=== PATIENT | female | born 1995 | race Caucasian/White ===

== ENCOUNTER 2022-01-19 11:31 | Emergency (ER) | payer SELFPAY ==
[2022-01-19] MEDS ORDERED: ACETAMINOPHEN 500 MG TAB PO ONE (14:43)
[2022-01-19] MEDS ORDERED: dexAMETHasone 20 MG/5 ML VIAL IM ONE (14:44)
--- NOTE | 2022-01-19 15:14 | Emergency Department Report ---
ED Fall HPI - General Chief Complaint: Fall Stated Complaint: HEADACHE/LOWER BACK PAIN LT SIDE Source: patient Mode of arrival: Ambulatory - History of Present Illness Initial Comments: 26-year-old female presents to the ED complaining of back pain after slip and fall at [employer] x3 days ago. 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 Patient denies any prolonged downtime. patient is alert and oriented x 3. Denies any, dysuria loss of bowel bowel or bladder, saddle anesthesia or fever . Patient states taking Motrin 400 mg prior to arrival and states that pain is a current 7 out of 10. Patient is ambulatory. No obvious deformity noted. No distracting injury noted. No edema noted. Onset/Timin -: days(s) Loss of Consciousness: none Prolonged Down Time?: no Symptoms Prior to Fall: none Location: back Severity: moderate Severity scale (0 -10): 7 Quality: aching Associated Symptoms: denies - Related Data Previous Rx's Medication Instructions Recorded Last Taken Type Cyclobenzaprine [Flexeril] 10 mg PO TID PRN 15 Days #30 tab 01/19/22 Unknown Rx Naproxen [Naprosyn] 500 mg PO BID 15 Days #30 tablet 01/19/22 Unknown Rx Allergies Allergy/AdvReac Type Severity Reaction Status Date / Time No Known Allergies Allergy Unverified 07/12/21 07:20 ED Review of Systems ROS: Stated complaint: HEADACHE/LOWER BACK PAIN LT SIDE Other details as noted in HPI Constitutional: denies: chills, fever Eyes: denies: eye pain, eye discharge, vision change ENT: denies: ear pain, throat pain Respiratory: denies: cough, shortness of breath, wheezing Cardiovascular: denies: chest pain, palpitations Endocrine: no symptoms reported Gastrointestinal: denies: abdominal pain, nausea, diarrhea Genitourinary: denies: urgency, dysuria, discharge Musculoskeletal: back pain. denies: joint swelling, arthralgia Skin: denies: rash, lesions Neurological: denies: headache, weakness, paresthesias Psychiatric: denies: anxiety, depression Hematological/Lymphatic: denies: easy bleeding, easy bruising ED Past Medical Hx - Past Medical History Hx Hypertension: No Hx Congestive Heart Failure: No Hx Diabetes: No Hx Deep Vein Thrombosis: No Hx Renal Disease: No Hx Sickle Cell Disease: No Hx Seizures: No Hx Asthma: No Hx COPD: No Hx HIV: No - Social History Smoking Status: Never Smoker - Medications Home Medications: Home Medications Medication Instructions Recorded Confirmed Last Taken Type Cyclobenzaprine [Flexeril] 10 mg PO TID PRN 15 Days #30 tab 01/19/22 Unknown Rx Naproxen [Naprosyn] 500 mg PO BID 15 Days #30 tablet 01/19/22 Unknown Rx ED Physical Exam - General Limitations: Language Barrier General appearance: alert, in no apparent distress - Head Head exam: Present: atraumatic, normocephalic - Eye Eye exam: Present: normal appearance - ENT ENT exam: Present: mucous membranes moist - Neck Neck exam: Present: normal inspection - Respiratory Respiratory exam: Present: normal lung sounds bilaterally. Absent: respiratory distress - Cardiovascular Cardiovascular Exam: Present: regular rate, normal rhythm. Absent: systolic murmur, diastolic murmur, rubs, gallop - GI/Abdominal GI/Abdominal exam: Present: soft, normal bowel sounds - Extremities Exam Extremities exam: Present: normal inspection - Back Exam Back exam: Present: normal inspection - Neurological Exam Neurological exam: Present: alert, oriented X3 - Psychiatric Psychiatric exam: Present: normal affect, normal mood - Skin Skin exam: Present: warm, dry, intact, normal color. Absent: rash ED Course Vital Signs 01/19/22 01/19/22 15:17 16:24 Temperature 97.4 F L Pulse Rate 91 H Respiratory 18 Rate Blood Pressure 131/78 [Right] O2 Sat by Pulse 99 100 Oximetry ED Medical Decision Making - Radiology Data [facility] [address] [place] [address] XRay Report Signed Patient: KELSEY TEIXEIRA Anne Marie#: [id number] : 1995 Acct:[id number] Age/Sex: 26 / F ADM Date: 01/19/22 Loc: ED Attending Dr: Ordering Physician: ASHU DE LA TORRE Date of Service: 01/19/22 Procedure(s): XR spine lumbosacral 2-3V Accession Number(s): [id number] cc: ASHU DE LA TORRE Fluoro Time In Minutes: Lumbar spine-3 views INDICATION: back pain. COMPARISON: None. IMPRESSION: Normal alignment. No significant discogenic DJD or facet arthropathy. No acute osseous or soft tissue abnormality. Signer Name: Kelvin Keller MD Signed: 01/19/2022 3:26 PM Workstation Name: [id number] Transcribed By: ENMANUEL Dictated By: Kelvin Keller MD Electronically Authenticated By: Kelvin Keller MD Signed Date/Time: 01/19/22 1526 DD/ 23 TD/TT: - Medical Decision Making 26-year-old female presents to the ED complaining of back pain after slip and fall at [employer] x3 days ago. 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 Patient denies any prolonged downtime. patient is alert and oriented x 3. Denies any, dysuria loss of bowel bowel or bladder, saddle anesthesia or fever . Patient states taking Motrin 400 mg prior to arrival and states that pain is a current 7 out of 10. Patient is ambulatory. No obvious deformity noted. No distracting injury noted. No edema noted. Physical examination patient has midline spinal tenderness noted. X-ray lumbar spine shows no abnormality. Tylenol 1 g given p.o. and Decadron 10 mg given IM for pain. Patient at time of discharge pain was 0 out of 10. RECHECKED THE PATIENT IS RESTING QUIETLY QUIETLY AND COMFORTABLE AND FEELING BETTER. I DISCUSSED THE RESULTS OF DIAGNOSTIC STUDY, MY CLINICAL IMPRESSION AND THE PLAN FOR FURTHER TREATMENT WITH THE PATIENT. PATIENT AGREES WITH PLAN AND DISCHARGE AT THIS PRESENT TIME. ALL QUESTION ADDRESSED. I HAVE GIVEN THE PATIENT INSTRUCTION REGARDING A DIAGNOSIS ,EXPECTATION ,FOLLOW- UP AND RETURN PRECAUTION. I EXPLAINED TO THE PATIENT THAT EMERGENT CONDITION MAY ARISE AND TO RETURN TO THE ED FOR NEW WORSEN AND ANY NEW PERSISTING CONDITION. I HAVE EXPLAINED THE IMPORTANCE OF FOLLOWING UP WITH THE PRIMARY CARE PHYSICIAN OR REFERRAL PHYSICIAN LISTED BELOW HAS INSTRUCTED. THE PATIENT VERBALIZED UNDERSTANDING OF DISCHARGE INSTRUCTION. Critical care attestation.: If time is entered above; I have spent that time in minutes in the direct care of this critically ill patient, excluding procedure time. ED Disposition Clinical Impression: Fall Qualifiers: Encounter type: initial encounter Qualified Code(s): W19.XXXA - Unspecified fall, initial encounter Back pain Qualifiers: Back pain location: low back pain Chronicity: acute Back pain laterality: bilateral Sciatica presence: without sciatica Qualified Code(s): M54.50 - Low back pain, unspecified Disposition: 01 HOME / SELF CARE / HOMELESS Is pt being admited?: No Does the pt Need Aspirin: No Condition: Stable Instructions: Acute Back Pain, Adult Additional Instructions: Take medication as prescribed Return to the ED for any worsening symptom Prescriptions: Cyclobenzaprine [Flexeril] 10 mg PO TID PRN 15 Days #30 tab PRN Reason: Muscle Spasm Naproxen [Naprosyn] 500 mg PO BID 15 Days #30 tablet Referrals: DEBORAH BERRY MD [Primary Care Provider] - 3-5 Days Forms: Work/School Release Form(ED) Time of Disposition: 15:54
[2022-01-19 15:20] VITALS: BP 131/78
--- NOTE | 2022-01-19 15:31 | XRay Report ---
Lumbar spine-3 views INDICATION: back pain. COMPARISON: None. IMPRESSION: Normal alignment. No significant discogenic DJD or facet arthropathy. No acute osseous or soft tissue abnormality. Signer Name: Kelvin Keller MD Signed: 01/19/2022 3:26 PM Workstation Name: [id number]
== END 2022-01-19 16:27 | disposition home or self-care (01) ==
LOC: ED 11:31
DX: M54.9 Dorsalgia, unspecified (principal); W19.XXXA Unspecified fall, initial encounter; Y93.89 Activity, other specified; Y92.89 Other specified places as the place of occurrence of the external cause; Y99.8 Other external cause status
CPT/HCPCS: 72100; 96372; 99283; J1100